=== PATIENT | female | born 2005 | race Caucasian/White ===

== ENCOUNTER 2025-01-04 16:21 | Outpatient (CLI) | payer SELFPAY | END 2025-01-04 16:22 | disposition home or self-care (01) | LOC: AMB 01-05 13:04 | PROVIDERS: Visit Provider Emergency Medicine | DX: S29.9XXA Unspecified injury of thorax, initial encounter (principal); V49.3XXA Car occupant (driver) (passenger) injured in unspecified nontraffic accident, initial encounter; Y92.411 Interstate highway as the place of occurrence of the external cause | CPT/HCPCS: A0425; A0427 ==

== ENCOUNTER 2025-01-04 16:42 | Emergency (ER) | payer SELFPAY ==
[2025-01-04] VITALS (20 sets, daily range): BP systolic 82–134; BP diastolic 51–100; PULSE 75–101; RESP 9–37; TEMP 36.9; O2SAT 90–100; BMI 32.8
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
--- OUTSIDE RECORDS SUMMARY | 2025-01-04 18:08 | XMS_ITS | Clinical Summary ---
Author Organization [facility] Address [address] [place] [id number] Care Team Providers Care Debate Director Name Role Phone [facility] Primary Ca re Provider Josseline Zepeda APRN [employer] [address] [employer] Unavailable [phone] Allergies Active Allergy Reactions Criticality Noted Date Comments Amoxicillin Hives High 05/06/2020 Medications Multiple Vitamins-Minerals (WOMENS MULTIVITAMIN + COLLAGEN PO) Take by mouth. 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 [employer] [employer] Weight gain (Primary Dx); Screening for HIV (human immunodeficiency virus); Need for hepatitis C screening test from Last 3 Months Immunizations Name Administration Dates Next Due DTAP (<7y) 09/25/2009, 5,2004,09/01,2004 HEPATITIS A (PEDS 12M-18Y) 09/20/2018,08/02/2017 HIB(PRP-OMP)(PedvaxHIB) 08/06/2005,2004, HPV9 08/02/2017,07/03/2016 Hepatitis B, Peds 2004,2004,06/26/20 04 Influenza Vaccine >6 months,quad, PF 09/20/2018 Influenza Vaccine, 6+MO IM (QUADRIVALENT W/PRESERVATIVES) 01/09/2020 MMR 12/30/2009,06/04/2005 Meningococcal ACWY (Menactra ) 07/15/2021 Meningococcal,unspecified 07/03/2016 Pneumococcal (PCV 7) 08/06/2005,11/03/19 05,2004,06/26 Poliovirus, inactivated (IPV) 09/25/2009 ,2004,2004,06/26 Tdap (Adult) Unspecified Formulation 07/03/2016 Varicella 12/30/2009,06/04/2005 Social History Tobacco Use Types Packs/Day Years Used Date Smoking Tobacco: Never Smokeless Tobacco: Never Tobacco Cessation:Counseling Given: Not Answered Alcohol Use Standard Drinks/Week Comments Never 0 (1 standard drink = 0.6 oz pur e alcohol) AUDIT-C Answer Date Recorded Q1: How often do you have a drink containing alc ohol? Never 07/14/2019 Average Number of Drinks Not on file 019 Frequency of Binge Drinking Not on file 07/02 PHQ-2 Answer Date Recorded PHQ-2 Score 0 10/31/2024 Adolescent Education Answer Date Record ed Getting School Help Needed Not on file 07/23 Comments No Sex and Gender Information Value Date Recorded Sex Assigned at Not on file Legal Sex Female 12:21 PM CDT Gender Identity Not on file Sexual Orientation Not on file Last Filed Vital Signs Vital Sign Reading Time Taken Comments Blood Pressure 110/70 04/22/2023 1:36 PM CDT Pulse 91 04/22/2023 1:36 PM CDT Temperature 36.6 C (97.9 F) 04/22/2023 1:36 PM CDT Respiratory Rate 16 05/06/2020 10:0 0 PM CDT Oxygen Saturation 99% 04/22/2023 1:36 PM CDT Inhaled Oxygen Concentration - - Weight 102.7 kg (226 lb 6.4 oz) 07/14/2019 3:38 PM CDT Height 158.8 cm (5' 2.5) 07/14/2019 3:38 PM CDT Body Mass Index 40.75 07/14/2019 3:38 PM CDT Plan of Treatment Health Maintenance Due Date Last Done Comments ADVANCE CARE PLANNING 2004 HIV SCREENING 2019 MENINGITIS B IMMUNIZATION (1 of 2 - Standard) 2020 YEARLY PREVENTIVE VISIT 07/14/2020 07/14/2019 HEPATITIS C SCREENING 2022 COVID-19 Vaccine (1 - 2023- season) 2024 INFLUENZA VACCINE (#1) 2024 01/09/2020, 2017 PHQ-2 (once per calendar year) 2024 10/31/2024 ANNUAL REVIEW OF HM ORDERS 10/31/2025 10/31/2024 DTAP/TDAP/TD IMMUNIZATION (7 - Td or Tdap) 07/03/2026 07/03/2016, 09/25/2009, 08/06/2005, Additional history exists ZOSTER IMMUNIZATION (1 of 2) 2054 HEPATITIS B IMMUNIZATION Completed 005, 2004, 2004 Pneumococcal Vaccine: Pediatrics (0 to 5 Years) and At-Risk Patients (6 to 49 Years) Aged Out 08/06/2005, 2004, 2004, Additional history exists No longer eligible based on patient's age to complete this topic HPV IMMUNIZATION Completed 08/02/2017, 07/03/2016 MENINGITIS IMMUNIZATION Completed 07/15/2021, 07/03 Insurance [facility] Care Teams Debate Director Relationship Specialty Start Date End Date Clinic - [facility] [address] [place] [address] PCP - General 08/10/24 Josseline Zepeda APRN [employer] [employer] [address] [place] [address] Assigned PCP 11/23/24
--- OUTSIDE RECORDS SUMMARY | 2025-01-04 18:08 | XMS_ITS | Clinical Summary ---
Author Organization [facility] Address [address] [place] [id number] Care Team Providers Care Gps Navigation Installer Name Role Phone Pcp, No Primary Care Provider Unavailabl e Allergies Active Allergy Reactions Criticality Noted Date Comments Amoxicillin Rash 02/24/2007 Medications escitalopram oxalate (LEXAPRO) 10 mg tabletIndication s:Major depressive disorder, recurrent episode, moderate (HC) Take 1 Tablet (10 mg) by mouth every morning. 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 Morbid obesity with body mass index (BMI) of 40. 0 to 49.9 01/05/2011 Unspecified dental caries 03/16/2008 Iron deficiency anemia, unspecified 02/25/2007 Resolved Problems Problem Noted Date Diagnosed Date Resolved Date Morbid obesity 01/05/2011 01/05/2011 Immunizations Name Administration Dates Next Due DTaP 08/06/2005 [id number] (Pediarix) 2004,2004,0 2004 DTaP-IPV (Kinrix) 09/25/2009 HIB PRP-OMP (PedvaxHIB) 08/06/2005,2004, HPV 9 (Gardasil 9) 08/02/2017,07/03/2016 Hepatitis A (Peds) 09/20/2018,08/02/2017 Hepatitis B (Peds) 2004 Influenza, IIV3 (Age >=3 years) 01/05/2011 Influenza, IIV4 12/31/2023(), 018,08/02/2017,12/2015 MENINGOCOCCAL VACCINE 2 VIAL 2MO-55YO (MENVEO) 07/03/2016 MMR 12/30/2009,06/04/2005 Pneumococcal conj 7-Valent (Prevnar 7) 1 ,2004,2004,06/26 Tdap 07/03/2016 Varicella Vaccine 12/30/2009,06/04/2005 Family History Medical History Relation Name Comments Blood Disease Mother Elsie anemia, ?thala ssemia Relation Name Status Comments Brother Alive x1 Father Alive Maternal Grandfather Alive Maternal Grandmother Alive Mother Elsie Alive Paternal Grandfather Alive Paternal Grandmother Alive Sister Alive x1 Social History Tobacco Use Types Packs/Day Years Used Date Smoking Tobacco: Never Smokeless Tobacco: Never Alcohol Use Standard Drinks/Week Comments Yes 10 (1 standard drink = 0.6 oz pure alcohol) !0 a week all in one day (BINGE) PHQ-2 Answer Date Recorded PHQ-2 TOTAL SCORE 2 01/03/2024 Social Connections Answer Date Recorded Do you often feel lonely or isolated from those around you? 0 12/30/2023 Alcohol Use Answer Date Recorded How often do you have a drink containing alcohol ? 2 12/30/2023 How many drinks containing a lcohol do you have on a typical day when you are drinking? 4 12/30/2023 How often do you have five or more drinks on one occasion? 3 12/30/2023 Financial Resource Strain Answer Date R ecorded Difficulty of Paying Living Expenses 3 12/31/2023 Difficulty of Paying Living Expenses Not on file 12/31/2023 Food Insecurity Answer Date Recorded Do you worry your food will run out before you are able to buy more? 1 12/30/2023 Transportation Needs Answer Date Record ed Does lack of transportation keep you from medica l appointments? 1 12/30/2023 Does lack of transportation keep you from work, meetings or getting things that you need? 1 12/30/2023 Housing Stability Answer Date Recorded What is your housing situation today? 1 12/30/2023 Interpersonal Safety Answer Date Record ed Are you being hit, kicked, p ushed or yelled at (see row info)? No 12/30/2023 Interpersonal Safety Abuse 12 - 18 Not on file 12/30/2023 Interpersonal Safety Ambulatory Vulnerability No t on file 12/30/2023 Utilities Answer Date Recorded Do you have trouble paying f or utilities (for example, heat, electricity, water, phone)? 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 Temperature 36.7 C (98.1 F) 01/03/2024 6:00 AM 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 Respiratory Rate 18 01/03/2024 6:00 AM 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 Oxygen Saturation 97% 01/03/2024 6:00 AM 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 Inhaled Oxygen Concentration - - Weight 91.5 kg (201 lb 11.2 oz) 01/03/2024 6:00 AM 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 Height 157.5 cm (5' 2) 12/30/2023 10:4 0 PM 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 Body Mass Index 36.89 12/30/2023 10:40 PM 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 Plan of Treatment Health Maintenance Due Date Last Done Comments Well Child Check for age 3-20 08/02/2018 08/02/2017, 07/03/2016, 04/23/2014, Additional history exists HIV for age 15-65 2019 BMI (ht and wt on same day) for age 18+ 2022 Hepatitis C screening for age 18-79 2022 COVID-19 vaccine series ( season) 2024 Influenza for age 9-49 07/02/2024 8, 08/02/2017, 07/03/2016, Additional history exists Depression screening for age 12+ 12/29/2024 12/30/2023, 09/20/2018, 08/02/2017, Additional history exists Tetanus booster 07/03/2026 07/03/2016 Pneumococcal series for age 6-49 Aged Out 08/06/2005, 2004, 2004, Additional history exists No longer eligible based on patient's age to complete this topic Meningococcal series for age 11-21 Aged Out 07/03/2016 No longer eligible based on patient's age to complete this topic Tdap Completed 07/03/2016 HPV series for age 9-26 Completed 08/02/2017, 07/03 Insurance [facility] Advance Directives * Full Code (Latest Code Status on File) Date Activated Date Inactivated Comments 12/31/2023 10:03 AM 01/03/2024 3:19 PM Question Answer Comments Code Status Discussion: Reviewed Preferences * Full Code Date Activated Date Inactivated Comments 12/30/2023 11:04 PM 12/31/2023 10:03 AM Question Answer Comments Code Status Discussion: Unable to Assess Preferences, Provider to review later Care Teams Gps Navigation Installer Relationship Specialty Start Date End Date Pcp, No . PCP - General 03/14/24
== END 2025-01-04 18:42 | disposition home or self-care (01) ==
PROVIDERS: Emergency Provider Emergency Medicine Emergency Medical Services
DX: S16.1XXA Strain of muscle, fascia and tendon at neck level, initial encounter (principal); V48.5XXA Car driver injured in noncollision transport accident in traffic accident, initial encounter; Y92.411 Interstate highway as the place of occurrence of the external cause
CPT/HCPCS: 70450; 71250; 72125; 93005; 99284; 99291; G0390